=== PATIENT | male | born 1995 | race Caucasian/White ===

== ENCOUNTER 2017-11-01 05:06 | Emergency (ER) | payer OTHER ==
[~2017-11-01] VITALS: Ht 175.3 cm; Wt 77.1 kg
--- NOTE | 2017-11-01 05:07 | NUR ---
PT [facility] TO ER BED 04, ASSITED INTO BED BY EMT
[2017-11-01 05:11] VITALS: BP 135/82
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
--- NOTE | 2017-11-01 05:20 | NUR ---
Patient refusing to lay down in bed, unable to put both side rails up. Pt refusing to provide information.
--- NOTE | 2017-11-01 06:28 | NUR ---
PATIENT RESTING AT THIS TIME. NO SIGNS OF DISTRESS.
--- NOTE | 2017-11-01 07:09 | NUR ---
Pt report given to REX DEAN. Transfer of care at this time.
--- NOTE | 2017-11-01 07:10 | NUR ---
PT. RESTING COMFORTABLY IN BED, SLEEPING. RR EVEN AND UNLABORED. WILL CONTINUE TO MONITOR. VSS.
--- NOTE | 2017-11-01 08:08 | NUR ---
pt. provided with a phone to call family member. rr even and unlabored. will continue to monitor.
[2017-11-01 08:30] VITALS: BP 126/82
--- NOTE | 2017-11-01 08:30 | NUR ---
Patient discharged with v/s stable. Written and verbal after care instructions given and explained. Patient verbalized understanding. Ambulatory with steady gait. All questions addressed prior to discharge. Advised to follow up with PMD. Pt. walked to lobby waiting for friend "Mehdi" to pick him up, provided with crackers and juice.
== END 2017-11-01 08:30 | disposition home or self-care (01) ==
LOC: MED 05:06
DX: F10.129 Alcohol abuse with intoxication, unspecified (principal)
CPT/HCPCS: 99283